=== PATIENT | female | born 1945 | race Caucasian/White ===

== ENCOUNTER 2020-05-20 14:05 | Emergency (ER) | payer OTHER ==
[~2020-05-20] VITALS: Ht 152.4 cm; Wt 81.6 kg
[2020-05-20] MEDS ORDERED: DIPH-TET-PERTUS Vaccine 0.5 ML VIAL (ADACEL) I.M. ONE (14:15)
[2020-05-20 15:35] VITALS: BP_SYST 153
[2020-05-20 16:56] LABS: BASOPHILS # (AUTO) 0.1 K/uL (0.0-0.2); BASOPHILS % (AUTO) 0.6 % (0.0-2.0); EOSINOPHILS # (AUTO) 0.2 K/uL (0.0-0.4); EOSINOPHILS % (AUTO) 1.5 % (0.0-4.0); HEMATOCRIT 36.3 % (36-48); HEMOGLOBIN 12.1 g/dL (12.0-16.0); LYMPHOCYTES # (AUTO) 1.6 K/uL (1.0-5.5); LYMPHOCYTES % (AUTO) 14.8 % (20.5-51.5); MEAN CORPUSCULAR HEMOGLOBIN 32 pg (27-31); MEAN CORPUSCULAR HGB CONC 33 % (32-36); MEAN CORPUSCULAR VOLUME 96 fL (79.0-98.0); MONOCYTES # (AUTO) 0.8 K/uL (0.0-1.0); MONOCYTES % (AUTO) 7.2 % (1.7-9.3); NEUTROPHILS # (AUTO) 8.1 K/uL (1.8-7.7); NEUTROPHILS % (AUTO) 75.9 % (40.0-70.0); PLATELET COUNT (AUTO) 195 K/uL (130-430); RED BLOOD CELL COUNT(AUTO) 3.79 MIL/uL (4.2-6.2); RED CELL DISTRIBUTION WIDTH 13.4 % (9.0-15.0); WHITE BLOOD COUNT (AUTO) 10.6 K/uL (4.8-10.8)
[2020-05-20 16:58] LABS: BILIRUBIN,URINE NEGATIVE (NEGATIVE); CLARITY/URINE CLEAR (CLEAR); COLOR,URINE YELLOW (YELLOW); GLUCOSE,URINE NEGATIVE (NEGATIVE); KETONES,URINE NEGATIVE (NEGATIVE); LEUKOCYTE ESTERASE ,URINE NEGATIVE (NEGATIVE); NITRITE, URINE NEGATIVE (NEGATIVE); PROTEIN URINE NEGATIVE (NEGATIVE); UROBILINOGEN,URINE 0.2 (0.2-1.0)
[2020-05-20 16:59] LABS: ANION GAP 6 (5-15); CALCIUM 8.9 mg/dL (8.4-11.0); CHLORIDE 101 mmol/L (98-107); CREATININE 1.17 mg/dL (0.55-1.30); GLUCOSE 132 mg/dL (70-99); POTASSIUM 4.4 mmol/L (3.5-5.1); SODIUM SERUM 132 mmol/L (136-145); UREA NITROGEN, BLOOD 25 mg/dL (8-21)
[2020-05-20 17:05] LABS: ALANINE AMINOTRANSFERASE 51 U/L (12-78); ALBUMIN 3.6 g/dL (3.4-4.8); ASPARTATE AMINOTRANSFERASE 28 U/L (10-37); INR 1.7 (0.8-1.2); PROTHROMBIN TIME 17.3 SECS (9.5-12.5); TOTAL BILIRUBIN 0.4 mg/dL (0.0-1.0)
[2020-05-20 17:13] LABS: BARBITURATE, URINE NEGATIVE (NEG <=200); BENZODIAZEPINE, URINE NEGATIVE (NEG <=150); CANNABINOID, URINE NEGATIVE (NEG <=50); COCAINE, URINE NEGATIVE (NEG <=150); METHAMPHETAMINES SCREEN,URINE NEGATIVE (NEG <=500); OPIATE, URINE NEGATIVE (NEG <=100); PHENCYCLIDINE SCREEN,URINE NEGATIVE (NEG <=25); UR TRICYCLIC ANTIDEPRESSANTS NEGATIVE (NEG <=300); URINE AMPHETAMINE NEGATIVE (NEG <=500); URINE METHADONE NEGATIVE (NEG <=200); URINE OXYCODONE SCREEN NEGATIVE (NEG <=100); URINE PROPOXYPHENE SCREEN NEGATIVE (NEG <=300)
[2020-05-20 17:17] LABS: ALCOHOL, BLOOD < 3 mg/dL (<10)
[2020-05-20 17:26] LABS: BLOOD, URINE TRACE (NEGATIVE)
[2020-05-20 18:49] VITALS: BP_SYST 153
== END 2020-05-20 18:49 | disposition home or self-care (01) ==
LOC: SED 14:05
DX: S00.83XA Contusion of other part of head, initial encounter (principal); I10 Essential (primary) hypertension; Z87.440 Personal history of urinary (tract) infections; W18.09XA Striking against other object with subsequent fall, initial encounter; Y93.89 Activity, other specified; Y92.89 Other specified places as the place of occurrence of the external cause; Y99.8 Other external cause status
CPT/HCPCS: 36415; 70450; 71045; 73030; 73100; 73130; 73564; 76376; 80053; 80307; 81003; 84484; 85025; 85610; 85730; 90471; 90715; 93005; 99285; G0482

== ENCOUNTER 2022-04-14 16:48 | Inpatient (IN) | payer OTHER ==
[~2022-04-14] VITALS: Ht 157.5 cm; Wt 81.6 kg
[2022-04-14 16:48] VITALS: BP_SYST 165
[2022-04-14] MEDS ORDERED: iohexoL 350 mgI/mL, 100 ML INFUS..BTL IV ONE (17:19)
[2022-04-14 17:42] LABS: BASOPHILS % (AUTO) 0.5 % (0.0-2.0); EOSINOPHILS # (AUTO) 0.2 K/uL (0.0-0.4); EOSINOPHILS % (AUTO) 3.4 % (0.0-4.0); HEMATOCRIT 38.1 % (36-48); HEMOGLOBIN 13.6 g/dL (12.0-16.0); LYMPHOCYTES # (AUTO) 1.4 K/uL (1.0-5.5); MEAN CORPUSCULAR HEMOGLOBIN 33 pg (27-31); MEAN CORPUSCULAR HGB CONC 36 % (32-36); MEAN CORPUSCULAR VOLUME 93 fL (79.0-98.0); MONOCYTES # (AUTO) 0.8 K/uL (0.0-1.0); NEUTROPHILS # (AUTO) 4.1 K/uL (1.8-7.7); NEUTROPHILS % (AUTO) 63.1 % (40.0-70.0); PLATELET COUNT (AUTO) 153 K/uL (130-430); RED CELL DISTRIBUTION WIDTH 13.4 % (9.0-15.0); WHITE BLOOD COUNT (AUTO) 6.5 K/uL (4.8-10.8)
[2022-04-14 17:49] LABS: ANION GAP 3 (5-15); CHLORIDE 98 mmol/L (98-107); CREATININE 1.29 mg/dL (0.55-1.30); GLUCOSE 142 mg/dL (70-99); UREA NITROGEN, BLOOD 22 mg/dL (8-21)
[2022-04-14 17:51] LABS: PROTHROMBIN TIME 10.2 SECS (9.5-12.5)
[2022-04-14 18:01] LABS: ALANINE AMINOTRANSFERASE 115 U/L (12-78); ALBUMIN 3.5 g/dL (3.4-4.8); ASPARTATE AMINOTRANSFERASE 80 U/L (10-37); TOTAL BILIRUBIN 0.6 mg/dL (0.0-1.0)
[2022-04-14 18:04] LABS: CALCIUM 14.4 mg/dL (8.4-11.0)
[2022-04-14] MEDS ORDERED: NACL 0.9% 1,000 ML IV ONE (18:30)
[2022-04-14 18:44] LABS: BILIRUBIN,URINE NEGATIVE (NEGATIVE); BLOOD, URINE NEGATIVE (NEGATIVE); CLARITY/URINE CLEAR (CLEAR); COLOR,URINE YELLOW (YELLOW); GLUCOSE,URINE NEGATIVE (NEGATIVE); KETONES,URINE NEGATIVE (NEGATIVE); LEUKOCYTE ESTERASE ,URINE NEGATIVE (NEGATIVE); NITRITE, URINE NEGATIVE (NEGATIVE); PH,URINE 6.5 (5.0-8.0); PROTEIN URINE TRACE (NEGATIVE); UROBILINOGEN,URINE 0.2 (0.2-1.0)
[2022-04-14] MEDS: NACL 0.9% 1,000 ML IV SCH (19:15)
[2022-04-14 19:40] LABS: BARBITURATE, URINE NEGATIVE (NEG <=200); BENZODIAZEPINE, URINE NEGATIVE (NEG <=150); CANNABINOID, URINE NEGATIVE (NEG <=50); COCAINE, URINE NEGATIVE (NEG <=150); METHAMPHETAMINES SCREEN,URINE NEGATIVE (NEG <=500); OPIATE, URINE NEGATIVE (NEG <=100); PHENCYCLIDINE SCREEN,URINE NEGATIVE (NEG <=25); UR TRICYCLIC ANTIDEPRESSANTS NEGATIVE (NEG <=300); URINE AMPHETAMINE NEGATIVE (NEG <=500); URINE METHADONE NEGATIVE (NEG <=200); URINE OXYCODONE SCREEN NEGATIVE (NEG <=100); URINE PROPOXYPHENE SCREEN NEGATIVE (NEG <=300)
[2022-04-14 19:47] LABS: BACTERIA,URINE RARE /HPF (None Seen); HYALINE CASTS, URINE 0-10 /LPF (None Seen); MUCUS,URINE None Seen /LPF (None Seen); WBC,URINE 0-3 /HPF (0-3)
[2022-04-14] MEDS ORDERED: CLON1TAB12 PO ×2 (20:04→20:13)
[2022-04-14] MEDS ORDERED: LISI-652 PO (20:13)
[2022-04-14] MEDS ORDERED: ATEN100T PO (20:13)
[2022-04-14] MEDS ORDERED: CHOL125C7 (20:15)
[2022-04-14] MEDS ORDERED: ESCI20TA PO (20:18)
[2022-04-14] MEDS ORDERED: BUPR300T55 PO (20:18)
[2022-04-14] MEDS ORDERED: MIRT-114 PO (20:20)
[2022-04-14 21:42] VITALS: BP_SYST 157
[2022-04-15] MEDS: ACETAMINOPHEN 325 MG TABLET PO PRN ×2 (01:22→20:10)
[2022-04-15 01:33] VITALS: BP_SYST 167
[2022-04-15] MEDS: NACL 0.9% 1,000 ML IV SCH ×2 (06:29→14:02)
[2022-04-15 08:00] VITALS: BP_SYST 150
[2022-04-15] MEDS: clonazePAM 0.5 MG TABLET PO SCH ×2 (08:52→20:10)
[2022-04-15] MEDS: MIRTAZAPINE 15 MG TABLET PO SCH ×2 (08:52→09:00)
[2022-04-15] MEDS: CITALOPRAM HYDROBROMIDE 20 MG TABLET PO SCH ×2 (08:52→09:00)
[2022-04-15] MEDS: ATENOLOL 50 MG TABLET (TENORMIN) PO SCH (08:52)
[2022-04-15] MEDS ORDERED: lisinopriL 5 MG TABLET PO SCH (09:00)
[2022-04-15 09:12] LABS: BASOPHILS % (AUTO) 0.7 % (0.0-2.0); EOSINOPHILS # (AUTO) 0.3 K/uL (0.0-0.4); EOSINOPHILS % (AUTO) 5.5 % (0.0-4.0); HEMATOCRIT 34.1 % (36-48); LYMPHOCYTES # (AUTO) 1.7 K/uL (1.0-5.5); LYMPHOCYTES % (AUTO) 28.1 % (20.5-51.5); MEAN CORPUSCULAR HEMOGLOBIN 33 pg (27-31); MEAN CORPUSCULAR HGB CONC 35 % (32-36); MEAN CORPUSCULAR VOLUME 93 fL (79.0-98.0); MONOCYTES # (AUTO) 0.8 K/uL (0.0-1.0); MONOCYTES % (AUTO) 13.2 % (1.7-9.3); NEUTROPHILS # (AUTO) 3.2 K/uL (1.8-7.7); NEUTROPHILS % (AUTO) 52.5 % (40.0-70.0); PLATELET COUNT (AUTO) 134 K/uL (130-430); RED BLOOD CELL COUNT(AUTO) 3.66 MIL/uL (4.2-6.2); RED CELL DISTRIBUTION WIDTH 13.1 % (9.0-15.0)
[2022-04-15 09:32] LABS: ALANINE AMINOTRANSFERASE 92 U/L (12-78); ANION GAP 3 (5-15); ASPARTATE AMINOTRANSFERASE 46 U/L (10-37); CHLORIDE 104 mmol/L (98-107); GLUCOSE 92 mg/dL (70-99); TOTAL BILIRUBIN 0.5 mg/dL (0.0-1.0); UREA NITROGEN, BLOOD 16 mg/dL (8-21)
[2022-04-15 10:07] LABS: CALCIUM 13.6 mg/dL (8.4-11.0)
[2022-04-15 11:35] VITALS: BP_SYST 159
[2022-04-15] MEDS ORDERED: lisinopriL 20 MG TABLET PO ONE (12:00)
[2022-04-15 15:35] VITALS: BP_SYST 167
[2022-04-15] MEDS: hydrALAZINE HCL 20 MG/ML VIAL IVP PRN (20:11)
[2022-04-15] MEDS ORDERED: CITALOPRAM HYDROBROMIDE 20 MG TABLET PO ONE (21:30)
[2022-04-16] VITALS (7 sets, daily range): BP systolic 106–175
[2022-04-16] MEDS: NACL 0.9% 1,000 ML IV SCH ×3 (01:15→21:15)
[2022-04-16] MEDS: hydrALAZINE HCL 20 MG/ML VIAL IVP PRN ×2 (06:32→15:16)
[2022-04-16 08:32] LABS: BASOPHILS # (AUTO) 0.1 K/uL (0.0-0.2); BASOPHILS % (AUTO) 0.8 % (0.0-2.0); EOSINOPHILS # (AUTO) 0.3 K/uL (0.0-0.4); EOSINOPHILS % (AUTO) 4.9 % (0.0-4.0); HEMATOCRIT 37.1 % (36-48); HEMOGLOBIN 13.1 g/dL (12.0-16.0); LYMPHOCYTES # (AUTO) 1.7 K/uL (1.0-5.5); LYMPHOCYTES % (AUTO) 26.2 % (20.5-51.5); MEAN CORPUSCULAR HEMOGLOBIN 33 pg (27-31); MEAN CORPUSCULAR HGB CONC 35 % (32-36); MEAN CORPUSCULAR VOLUME 93 fL (79.0-98.0); MONOCYTES # (AUTO) 0.8 K/uL (0.0-1.0); MONOCYTES % (AUTO) 12.7 % (1.7-9.3); NEUTROPHILS # (AUTO) 3.7 K/uL (1.8-7.7); NEUTROPHILS % (AUTO) 55.4 % (40.0-70.0); PLATELET COUNT (AUTO) 157 K/uL (130-430); RED BLOOD CELL COUNT(AUTO) 4.01 MIL/uL (4.2-6.2); RED CELL DISTRIBUTION WIDTH 13.2 % (9.0-15.0); WHITE BLOOD COUNT (AUTO) 6.6 K/uL (4.8-10.8)
[2022-04-16 08:35] LABS: ALANINE AMINOTRANSFERASE 92 U/L (12-78); ALBUMIN 3.4 g/dL (3.4-4.8); ANION GAP 6 (5-15); ASPARTATE AMINOTRANSFERASE 42 U/L (10-37); CHLORIDE 102 mmol/L (98-107); CREATININE 1.14 mg/dL (0.55-1.30); GLUCOSE 96 mg/dL (70-99); TOTAL BILIRUBIN 0.6 mg/dL (0.0-1.0); UREA NITROGEN, BLOOD 14 mg/dL (8-21)
[2022-04-16 08:42] LABS: CALCIUM 14.6 mg/dL (8.4-11.0)
[2022-04-16] MEDS: clonazePAM 0.5 MG TABLET PO SCH ×2 (09:20→21:23)
[2022-04-16] MEDS: lisinopriL 20 MG TABLET PO SCH (09:20)
[2022-04-16] MEDS: ATENOLOL 50 MG TABLET (TENORMIN) PO SCH (09:21)
[2022-04-16] MEDS: CITALOPRAM HYDROBROMIDE 20 MG TABLET PO SCH (21:23)
[2022-04-17] MEDS: hydrALAZINE HCL 20 MG/ML VIAL IVP PRN (00:05)
[2022-04-17 01:05] VITALS: BP_SYST 162
[2022-04-17] MEDS: NACL 0.9% 1,000 ML IV SCH ×2 (06:23→17:15)
[2022-04-17 06:43] LABS: BASOPHILS # (AUTO) 0.1 K/uL (0.0-0.2); BASOPHILS % (AUTO) 0.7 % (0.0-2.0); EOSINOPHILS # (AUTO) 0.3 K/uL (0.0-0.4); EOSINOPHILS % (AUTO) 3.9 % (0.0-4.0); HEMATOCRIT 36.9 % (36-48); LYMPHOCYTES % (AUTO) 25.8 % (20.5-51.5); MEAN CORPUSCULAR HEMOGLOBIN 33 pg (27-31); MEAN CORPUSCULAR HGB CONC 35 % (32-36); MEAN CORPUSCULAR VOLUME 94 fL (79.0-98.0); MONOCYTES % (AUTO) 12.2 % (1.7-9.3); NEUTROPHILS # (AUTO) 4.5 K/uL (1.8-7.7); NEUTROPHILS % (AUTO) 57.4 % (40.0-70.0); PLATELET COUNT (AUTO) 165 K/uL (130-430); RED BLOOD CELL COUNT(AUTO) 3.94 MIL/uL (4.2-6.2); RED CELL DISTRIBUTION WIDTH 13.1 % (9.0-15.0); WHITE BLOOD COUNT (AUTO) 7.9 K/uL (4.8-10.8)
[2022-04-17 06:56] LABS: ANION GAP 5 (5-15); CHLORIDE 103 mmol/L (98-107); GLUCOSE 95 mg/dL (70-99); PHOSPHORUS 2.5 mg/dL (2.7-4.5); UREA NITROGEN, BLOOD 17 mg/dL (8-21)
[2022-04-17 08:00] VITALS: BP_SYST 150
[2022-04-17] MEDS: clonazePAM 0.5 MG TABLET PO SCH ×2 (08:41→20:31)
[2022-04-17] MEDS: ATENOLOL 50 MG TABLET (TENORMIN) PO SCH (08:42)
[2022-04-17] MEDS: lisinopriL 20 MG TABLET PO SCH (08:42)
[2022-04-17 11:47] VITALS: BP_SYST 150
[2022-04-17] MEDS ORDERED: NA PHOS 15 MM in NS 250 ML IV ONE (12:00)
[2022-04-17] MEDS ORDERED: PAMIDRONATE DISODIUM IV ONE (13:00)
[2022-04-17] MEDS ORDERED: NACL 0.9% IV ONE (13:00)
[2022-04-17 16:36] LABS: TOTAL IRON BIND. CAPACITY 123 ug/dL (250-450)
[2022-04-17 16:43] VITALS: BP_SYST 145
[2022-04-17 20:24] VITALS: BP_SYST 150
[2022-04-17] MEDS: CITALOPRAM HYDROBROMIDE 20 MG TABLET PO SCH (20:33)
[2022-04-17 22:37] VITALS: BP_SYST 155
[2022-04-18] VITALS (7 sets, daily range): BP systolic 136–188
[2022-04-18] MEDS: hydrALAZINE HCL 20 MG/ML VIAL IVP PRN ×2 (01:35→15:49)
[2022-04-18] MEDS: NACL 0.9% 1,000 ML IV SCH ×2 (03:15→14:22)
[2022-04-18] MEDS ORDERED: MAGNESIUM SULFATE 50 ML IV ONE (07:15)
[2022-04-18 07:34] LABS: BASOPHILS # (AUTO) 0.1 K/uL (0.0-0.2); BASOPHILS % (AUTO) 0.9 % (0.0-2.0); EOSINOPHILS # (AUTO) 0.3 K/uL (0.0-0.4); EOSINOPHILS % (AUTO) 3.8 % (0.0-4.0); HEMOGLOBIN 12.4 g/dL (12.0-16.0); LYMPHOCYTES # (AUTO) 1.8 K/uL (1.0-5.5); LYMPHOCYTES % (AUTO) 22.5 % (20.5-51.5); MEAN CORPUSCULAR HEMOGLOBIN 33 pg (27-31); MEAN CORPUSCULAR HGB CONC 35 % (32-36); MEAN CORPUSCULAR VOLUME 94 fL (79.0-98.0); MONOCYTES # (AUTO) 0.8 K/uL (0.0-1.0); MONOCYTES % (AUTO) 10.1 % (1.7-9.3); NEUTROPHILS # (AUTO) 5.1 K/uL (1.8-7.7); NEUTROPHILS % (AUTO) 62.7 % (40.0-70.0); PLATELET COUNT (AUTO) 158 K/uL (130-430); RED BLOOD CELL COUNT(AUTO) 3.74 MIL/uL (4.2-6.2); WHITE BLOOD COUNT (AUTO) 8.1 K/uL (4.8-10.8)
[2022-04-18 08:51] LABS: ALANINE AMINOTRANSFERASE 67 U/L (12-78); ALBUMIN 3.1 g/dL (3.4-4.8); ANION GAP 7 (5-15); ASPARTATE AMINOTRANSFERASE 31 U/L (10-37); CHLORIDE 104 mmol/L (98-107); CREATININE 1.18 mg/dL (0.55-1.30); GLUCOSE 92 mg/dL (70-99); PHOSPHORUS 2.2 mg/dL (2.7-4.5); TOTAL BILIRUBIN 0.3 mg/dL (0.0-1.0); UREA NITROGEN, BLOOD 17 mg/dL (8-21)
[2022-04-18] MEDS: clonazePAM 0.5 MG TABLET PO SCH ×2 (09:37→20:06)
[2022-04-18] MEDS: lisinopriL 20 MG TABLET PO SCH (09:38)
[2022-04-18] MEDS: ATENOLOL 50 MG TABLET (TENORMIN) PO SCH (09:38)
[2022-04-18 10:09] LABS: CALCIUM 13.2 mg/dL (8.4-11.0)
[2022-04-18] MEDS ORDERED: POTASSIUM CHLORIDE 40 MEQ in NS 250 ML IV ONE (10:45)
[2022-04-18] MEDS ORDERED: FUROSEMIDE 20 MG/2 ML VIAL IVP ONE (19:00)
[2022-04-18] MEDS: CITALOPRAM HYDROBROMIDE 20 MG TABLET PO SCH (20:06)
[2022-04-19] VITALS (9 sets, daily range): BP systolic 131–187
[2022-04-19] MEDS: clonazePAM 0.5 MG TABLET PO SCH ×2 (08:11→21:26)
[2022-04-19] MEDS: ATENOLOL 50 MG TABLET (TENORMIN) PO SCH (08:12)
[2022-04-19] MEDS: lisinopriL 20 MG TABLET PO SCH (08:13)
[2022-04-19 10:07] LABS: ANTI NUCLEAR AB WITH REFLEX Positive (Negative)
[2022-04-19] MEDS: NACL 0.9% 1,000 ML IV SCH ×2 (13:03→21:27)
[2022-04-19] MEDS ORDERED: DOCUSATE SODIUM 100 MG CAPSULE PO ONE (16:30)
[2022-04-19] MEDS: CITALOPRAM HYDROBROMIDE 20 MG TABLET PO SCH (21:26)
[2022-04-19] MEDS: DOCUSATE SODIUM 100 MG CAPSULE PO SCH (21:26)
[2022-04-20] MEDS: NACL 0.9% 1,000 ML IV SCH ×2 (04:54→20:16)
[2022-04-20 05:08] LABS: HEPATITIS A AB, IgM Negative (Negative); HEPATITIS B CORE AB, IgM Negative (Negative); HEPATITIS B SURFACE AG Negative (Negative)
[2022-04-20] MEDS: clonazePAM 0.5 MG TABLET PO SCH ×2 (08:58→20:15)
[2022-04-20] MEDS: DOCUSATE SODIUM 100 MG CAPSULE PO SCH ×2 (08:59→20:15)
[2022-04-20] MEDS: lisinopriL 20 MG TABLET PO SCH (08:59)
[2022-04-20] MEDS: ATENOLOL 50 MG TABLET (TENORMIN) PO SCH (08:59)
[2022-04-20 10:06] LABS: A/G RATIO 0.7 (0.7-1.7); ALBUMIN 2.9 g/dL (2.9-4.4); ALPHA-1-GLOBULIN 0.3 g/dL (0.0-0.4); ALPHA-2-GLOBULIN 0.8 g/dL (0.4-1.0); BETA GLOBULIN 1.1 g/dL (0.7-1.3); GAMMA GLOBULIN 1.9 g/dL (0.4-1.8); GLOBULIN, TOTAL 4.1 g/dL (2.2-3.9); M-SPIKE Not Observed g/dL (Not Observed)
[2022-04-20 11:01] LABS: FERRITIN 474 ng/mL (15-150)
[2022-04-20 12:00] VITALS: BP_SYST 141
[2022-04-20 12:01] VITALS: BP_SYST 158
[2022-04-20] MEDS ORDERED: SODIUM PHOSPHATE,MONO-DIBASIC 133 ML ENEMA RC ONE (12:15)
[2022-04-20 12:50] LABS: BASOPHILS # (AUTO) 0.1 K/uL (0.0-0.2); BASOPHILS % (AUTO) 1.1 % (0.0-2.0); EOSINOPHILS # (AUTO) 0.4 K/uL (0.0-0.4); EOSINOPHILS % (AUTO) 6.7 % (0.0-4.0); HEMATOCRIT 34.1 % (36-48); HEMOGLOBIN 11.8 g/dL (12.0-16.0); LYMPHOCYTES # (AUTO) 1.4 K/uL (1.0-5.5); LYMPHOCYTES % (AUTO) 23.5 % (20.5-51.5); MEAN CORPUSCULAR HEMOGLOBIN 33 pg (27-31); MEAN CORPUSCULAR HGB CONC 35 % (32-36); MEAN CORPUSCULAR VOLUME 95 fL (79.0-98.0); MONOCYTES # (AUTO) 0.8 K/uL (0.0-1.0); MONOCYTES % (AUTO) 13.4 % (1.7-9.3); NEUTROPHILS # (AUTO) 3.2 K/uL (1.8-7.7); NEUTROPHILS % (AUTO) 55.3 % (40.0-70.0); PLATELET COUNT (AUTO) 154 K/uL (130-430); WHITE BLOOD COUNT (AUTO) 5.9 K/uL (4.8-10.8)
[2022-04-20 12:55] LABS: ANION GAP 5 (5-15); CALCIUM 10.1 mg/dL (8.4-11.0); CHLORIDE 105 mmol/L (98-107); CREATININE 1.12 mg/dL (0.55-1.30); GLUCOSE 89 mg/dL (70-99); UREA NITROGEN, BLOOD 19 mg/dL (8-21)
[2022-04-20 13:00] LABS: ALANINE AMINOTRANSFERASE 59 U/L (12-78); ALBUMIN 2.9 g/dL (3.4-4.8); ASPARTATE AMINOTRANSFERASE 28 U/L (10-37); TOTAL BILIRUBIN 0.3 mg/dL (0.0-1.0)
[2022-04-20] MEDS ORDERED: AMLO5TAB92 PO (13:40)
[2022-04-20] MEDS ORDERED: amLODIPine BESYLATE 5 MG TABLET PO ONE (13:45)
[2022-04-20 16:00] VITALS: BP_SYST 179
[2022-04-20] MEDS: ACETAMINOPHEN 325 MG TABLET PO PRN (18:12)
[2022-04-20 20:00] VITALS: BP_SYST 158
[2022-04-20] MEDS: CITALOPRAM HYDROBROMIDE 20 MG TABLET PO SCH (20:15)
[2022-04-21] VITALS: BP_SYST 152
[2022-04-21] MEDS: NACL 0.9% 1,000 ML IV SCH ×2 (05:22→13:03)
[2022-04-21 07:11] LABS: BASOPHILS # (AUTO) 0.1 K/uL (0.0-0.2); EOSINOPHILS # (AUTO) 0.3 K/uL (0.0-0.4); EOSINOPHILS % (AUTO) 4.9 % (0.0-4.0); HEMATOCRIT 32.8 % (36-48); HEMOGLOBIN 11.5 g/dL (12.0-16.0); LYMPHOCYTES # (AUTO) 1.4 K/uL (1.0-5.5); LYMPHOCYTES % (AUTO) 23.7 % (20.5-51.5); MEAN CORPUSCULAR HEMOGLOBIN 33 pg (27-31); MEAN CORPUSCULAR HGB CONC 35 % (32-36); MEAN CORPUSCULAR VOLUME 94 fL (79.0-98.0); MONOCYTES # (AUTO) 0.7 K/uL (0.0-1.0); MONOCYTES % (AUTO) 12.4 % (1.7-9.3); NEUTROPHILS # (AUTO) 3.5 K/uL (1.8-7.7); PLATELET COUNT (AUTO) 147 K/uL (130-430); RED BLOOD CELL COUNT(AUTO) 3.48 MIL/uL (4.2-6.2); RED CELL DISTRIBUTION WIDTH 13.2 % (9.0-15.0)
[2022-04-21 07:22] LABS: ANION GAP 5 (5-15); CALCIUM 9.7 mg/dL (8.4-11.0); CHLORIDE 108 mmol/L (98-107); CREATININE 1.04 mg/dL (0.55-1.30); GLUCOSE 82 mg/dL (70-99); UREA NITROGEN, BLOOD 22 mg/dL (8-21)
[2022-04-21] MEDS ORDERED: amLODIPine BESYLATE 5 MG TABLET PO SCH (09:00)
[2022-04-21] MEDS: ATENOLOL 50 MG TABLET (TENORMIN) PO SCH (09:23)
[2022-04-21] MEDS: DOCUSATE SODIUM 100 MG CAPSULE PO SCH (09:23)
[2022-04-21] MEDS: lisinopriL 20 MG TABLET PO SCH (09:25)
[2022-04-21] MEDS: clonazePAM 0.5 MG TABLET PO SCH (09:26)
[2022-04-21] MEDS ORDERED: amLODIPine BESYLATE 5 MG TABLET PO ONE (11:15)
[2022-04-21 12:43] VITALS: BP_SYST 155
[2022-04-21 12:54] LABS: PTH, INTACT 119 pg/mL (15-65)
[2022-04-21 15:00] VITALS: BP_SYST 148
[2022-04-21] MEDS ORDERED: FLU VACC QS2022-23(6MOS UP)/PF 0.5 ML/SYR SYRINGE I.M. ONE (15:45)
[2022-04-21 16:28] VITALS: BP_SYST 153
[2022-04-22] MEDS ORDERED: amLODIPine BESYLATE 5 MG TABLET PO SCH (09:00)
[2022-04-26 01:08] LABS: PTH RELATED PEPTIDE <2.0 pmol/L (.)
== END 2022-04-21 17:00 | disposition home health service (06) | DRG 640 ==
LOC: SED 16:48 → STU 19:14 → SMU 20:32 → STU 21:51 → SMU 04-17 09:33
PROVIDERS: ADMIT Internal Medicine; ATTEND Internal Medicine
PROC: 4A00X4Z Measurement of Central Nervous Electrical Activity, External Approach (ICD-10-PCS; principal; 2022-04-19)
DX: E83.52 Hypercalcemia (principal); G92.8 Other toxic encephalopathy; N17.9 Acute kidney failure, unspecified; R53.1 Weakness; E83.39 Other disorders of phosphorus metabolism; E66.9 Obesity, unspecified; Z20.822 Contact with and (suspected) exposure to COVID-19; F41.9 Anxiety disorder, unspecified; I10 Essential (primary) hypertension; F32.A Depression, unspecified; R74.01 Elevation of levels of liver transaminase levels; Z86.73 Personal history of transient ischemic attack (TIA), and cerebral infarction without residual deficits; Z68.32 Body mass index [BMI] 32.0-32.9, adult
CPT/HCPCS: 36415; 70450-TC; 70496; 70498; 70551; 71045; 72100-TC; 73502; 76376; 76700-TC; 80048; 80053; 80074; 80307; 81000; 82310; 82390; 82570; 82728; 82962; 83516; 83519; 83540; 83550; 83735; 83970; 84100; 84155; 84156; 84165; 84484; 85025; 85610-TC; 85730-TC; 86038; 86886; 86900; 86901; 92610-GN; 93005; 95816; 97110-GP; 97116-GP; 97530-GP; 99285; G0378; J0360; J1940; J2430; J3475; J3480; J7030; J7040; J7050; Q9967

== ENCOUNTER 2023-05-16 19:01 | Emergency (ER) | payer OTHER ==
[~2023-05-16] VITALS: Ht 157.5 cm; Wt 74.8 kg
[~2023-05-16 19:01] MED LIST: AMLO5TAB92 PO; ATEN100T PO; BUPR300T55 PO; CHOL125C7; ESCI20TA PO; LISI-652 PO
[2023-05-16 20:01] VITALS: BP_SYST 143; PULSE 62; RESP 18; O2SAT 98
[2023-05-16] MEDS ORDERED: ACET1TAB93 PO (21:28)
[2023-05-16] MEDS ORDERED: HYDROcodone/ACETAMIN 5-325 MG TAB (NORCO/ VICODIN) PO ONE (21:30)
== END 2023-05-16 21:20 | disposition left against medical advice (07) ==
LOC: SED 19:01
DX: S32.010A Wedge compression fracture of first lumbar vertebra, initial encounter for closed fracture (principal); S13.4XXA Sprain of ligaments of cervical spine, initial encounter; I10 Essential (primary) hypertension; Z79.899 Other long term (current) drug therapy; V89.2XXA Person injured in unspecified motor-vehicle accident, traffic, initial encounter; Y93.89 Activity, other specified; Y92.89 Other specified places as the place of occurrence of the external cause; Y99.8 Other external cause status
CPT/HCPCS: 70450-TC; 72100-TC; 72125-TC; 76376; 99284